=== PATIENT | female | born 1970 ===

== ENCOUNTER 2019-05-17 08:19 | Day surgery (SDC) | payer OTHER ==
--- NOTE | 2019-05-16 16:10 | Pre-Procedure Note/Attestation ---
Pre-Procedure Note/Attestation Complete Prior to Procedure Planned Procedure: right Procedure Narrative: rt carpal tunnel release, cubital tunnel release with ulnar n transposition and lateral epicondylar PRP Indications for Procedure Pre-Operative Diagnosis: rt carpal tunnel syndrome, cubital tunnel syndrome, lateral epicondylitis Attestation I attest that I discussed the nature of the procedure; its benefits; risks and complications; and alternatives (and the risks and benefits of such alternatives ), prior to the procedure, with the patient (or the patient's legal hospital insurance representative). I attest that, if there was a reasonable possibility of needing a blood transfusion, the patient (or the patient's legal hospital insurance representative) was given the [place] [employer] standardized written summary, pursuant to the Skyler Linnette Blood Safety Act ([place] Health and Safety Code # 1645, as amended). I attest that I re-evaluated the patient just prior to the surgery and that there has been no change in the patient's H&P, except as documented below: NONE Ar Boone MD May 16, 2019 16:10
[2019-05-17] VITALS (8 sets, daily range): BP systolic 103–132; BP diastolic 58–77
[~2019-05-17] VITALS: Ht 165.1 cm; Wt 61.2 kg
[~2019-05-17 08:19] MED LIST: ceFAZolin 1gm IVPB IVPB ONE; celeBREX 200mg Cap **SURGERY PATIENTS ONLY ORAL ONE; oxyCONTIN 20mg tab ORAL ONE
[2019-05-17] MEDS ORDERED: [UNRECOGNIZED DRUG - REMARK] PO (08:54)
[2019-05-17] MEDS ORDERED: NAPROXEN500 M2 ORAL (09:19)
[2019-05-17] MEDS ORDERED: celeBREX 200mg Cap **SURGERY PATIENTS ONLY ORAL ONE (09:33)
[2019-05-17] MEDS ORDERED: oxyCONTIN 20mg tab ORAL ONE (09:33)
[2019-05-17] MEDS ORDERED: D5 1/2NS 1,000 ML IV SCH (10:15)
[2019-05-17] MEDS ORDERED: HYDROmorphone 1mg/ml Carpuject SUBQ PRN (10:15)
[2019-05-17] MEDS ORDERED: HYDROcodone/Acetamin 5/325 tab ORAL PRN ×2 (10:15→10:30)
[2019-05-17] MEDS ORDERED: Tylenol #3 tab (300mg/30mg) ORAL PRN (10:15)
[2019-05-17] MEDS ORDERED: Bupivacaine w/Epi 0.5% 30ml Vial INJ ONE (10:25)
[2019-05-17] MEDS ORDERED: NeoSporin Gu Irrig 1ml Amp IRRIG ONE (10:25)
[2019-05-17] MEDS ORDERED: Bacitracin 50000 Units Vial ONE (10:25)
[2019-05-17] MEDS ORDERED: LR 1000ml 1,000 ML IVLG SCH (10:29)
[2019-05-17] MEDS ORDERED: Sterile Water Irrig 1000ml IRRIG ONE (10:30)
[2019-05-17] MEDS ORDERED: Propofol 200mg/20ml IV ONE (10:30)
[2019-05-17] MEDS ORDERED: oxyCODONE HCL/Acetaminophen 5/325mg ORAL PRN (10:30)
[2019-05-17] MEDS ORDERED: Metoclopramide 10mg/2ml Inj IVP PRN (10:30)
[2019-05-17] MEDS ORDERED: LORazepam Inj 2mg/ml 1ml IV PRN (10:30)
[2019-05-17] MEDS ORDERED: Meperidine 50mg/ml Inj(FOR RIGORS ONLY) IVP PRN (10:30)
[2019-05-17] MEDS ORDERED: DiphenhydrAMINE 50mg/ml Inj IVP PRN (10:30)
[2019-05-17] MEDS ORDERED: Atropine Sulfate 0.4mg/ml inj IVP PRN (10:30)
[2019-05-17] MEDS ORDERED: Acetaminophen (Non formulary) 100 ML IV ONE (10:30)
[2019-05-17] MEDS ORDERED: NS Irrig 1000ml ONE (10:30)
[2019-05-17] MEDS ORDERED: LR 1000ml ONE (10:30)
[2019-05-17] MEDS ORDERED: HYDROcodone/Acetamin 7.5/325 tab ORAL PRN (10:30)
[2019-05-17] MEDS ORDERED: Hydromorphone 0.5mg/0.5ml inj IVP PRN (10:30)
[2019-05-17] MEDS ORDERED: fentaNYL 100 mcg/2 mL IV PRN (10:30)
[2019-05-17] MEDS ORDERED: Labetalol 5mg/ml 20ml vial IV PRN (10:30)
[2019-05-17] MEDS ORDERED: Midazolam 2mg/2ml Inj IVP PRN (10:30)
[2019-05-17] MEDS ORDERED: Ketorolac 30mg Inj IV PRN ×2 (10:30)
--- NOTE | 2019-05-17 10:30 | Anethesia Preoperative Eval ---
Anesthesia Pre-op PMH/ROS General Date of Evaluation: May 17, 2019 Time of Evaluation: 10:34 Anesthesiologist: Dee ASA Score: ASA 1 Mallampati Score Class I : Soft palate, uvula, fauces, pillars visible Class II: Soft palate, uvula, fauces visible Class III: Soft palate, base of uvula visible Class IV: Only hard plate visible Mallampati Classification: Class I Surgeon: Mely Diagnosis: R Wrist Pain Surgical Procedure: R CTR with PRP injection wrist Anesthesia History: PONV Family History: no anesthesia problems Allergies: Coded Allergies: SUMATRIPTAN (Verified Adverse Reaction, Intermediate, severe headaches, ) Medications: see eMAR Patient NPO?: Yes Past Medical History Neurologic/Psychiatric: Reports: depression/anxiety, other - Migranes PSxH Narrative: Cholecystectomy, Breast Implants, C/S Anesthesia Pre-op Phys. Exam Physician Exam Last Vital Signs Date Time Temp Pulse Resp B/P (MAP) Pulse Ox O2 Delivery O2 Flow Rate FiO2 05/17/19 08:59 97.8 76 18 103/73 96 Room Air Constitutional: NAD Neurologic: CN 2-12 intact Cardiovascular: RRR Respiratory: CTA Gastrointestinal: S/NT/ND Airway Exam Mallampati Score: Class I MO: full ROM: full Teeth: intact Anesthesia Pre-op A/P Risk Assessment & Plan Assessment: ASA 1 Plan: TIVA Status Change Before Surgery: No Pre-Antibiotics Dru Gram Ancef IV Given Within 1 Hr of Incision: Yes Time Given: 10:41 Wallace Price MD May 17, 2019 10:30
[2019-05-17] MEDS ORDERED: Midazolam 2mg/2ml Inj ONE (10:35)
[2019-05-17] MEDS ORDERED: fentaNYL 100 mcg/2 mL IV ONE (10:35)
[2019-05-17] MEDS ORDERED: Dexamethasone 4mg/ml vial ONE (10:36)
[2019-05-17] MEDS ORDERED: Lidocaine 1% MPF 10mg/ml 5ml ONE ×2 (10:36→11:35)
[2019-05-17] MEDS ORDERED: Sodium Chloride 10ml vial INJ ONE (10:36)
[2019-05-17] MEDS ORDERED: Lidocaine 1% Plain 30 ml INJ ONE (10:36)
--- NOTE | 2019-05-17 11:31 | Immediate Post-Op Evaluation ---
Immediate Post-Op Evalulation Immediate Post-Op Evalulation Procedure: R CTR with PRP injection wrist Date of Evaluation: May 17, 2019 Time of Evaluation: 12:29 IV Fluids: 1100 LR Blood Products: 0 Estimated Blood Loss: 15 Urinary Output: 0 Blood Pressure Systolic: 111 Blood Pressure Diastolic: 59 Pulse Rate: 66 Respiratory Rate: 16 O2 Sat by Pulse Oximetry: 99 Temperature (Fahrenheit): 97.1 Pain Score (1-10): 2 Nausea: No Vomiting: No Patient Status: awake, reacts, patent, none Hydration Status: adequate Dru Given Within 1 Hr of Incision: Yes Time Given: 10:41 Wallace Price MD May 17, 2019 11:31
--- NOTE | 2019-05-17 11:32 | 48 Hour Post Anesthesia Eval ---
Post Anesthesia Evaluation Procedure: R CTR with PRP injection wrist Date of Evaluation: May 17, 2019 Time of Evaluation: 14:34 Blood Pressure Systolic: 128 0: 62 Pulse Rate: 67 Respiratory Rate: 18 Temperature (Fahrenheit): 98 O2 Sat by Pulse Oximetry: 100 Airway: patent Nausea: No Vomiting: No Pain Intensity: 2 Hydration Status: adequate Cardiopulmonary Status: Stable Mental Status/LOC: patient returned to baseline Follow-up Care/Observations: 0 Post-Anesthesia Complications: 0 Follow-up care needed: ready to discharge Wallace Price MD May 17, 2019 11:32
--- NOTE | 2019-05-17 12:04 | Brief Operative Note ---
Immediate Post Operative Note Operative Note Chief Complaint: rt elbow/wrist pain Pre-op Diagnosis: rt carpal tunnel syndrome, cubital tunnel syndrome, lateral epicondylitis Procedure: rt carpal tunnel release, cubital tunnel release with ulnar n transposition, lateral epicondylar prp Post-op Diagnosis: same as pre-op Findings: consistent w/pre-op dx studies Surgeon: md january Load Dispatcher Local: isaiah smith Anesthesiologist: md anne-marie Anesthesia: general Specimen: none Complications: none Condition: stable Fluids: ns Estimated Blood Loss: minimal Drains: none Implant(s) used?: No Rochelle Smith May 17, 2019 12:04
--- NOTE | 2019-05-17 18:00 | Operative Note - Dictated ---
DATE OF OPERATION: 05/17/2019 PREOPERATIVE DIAGNOSES: 1. Right hand carpal tunnel syndrome. 2. Right elbow medial epicondylitis. 3. Right elbow cubital tunnel syndrome. 4. Right elbow lateral epicondylitis. POSTOPERATIVE DIAGNOSES: 1. Right hand carpal tunnel syndrome. 2. Right elbow medial epicondylitis. 3. Right elbow cubital tunnel syndrome. 4. Right elbow lateral epicondylitis. PROCEDURE: 1. Right hand carpal tunnel release. 2. Right elbow medial epicondylar release. 3. Right elbow subfascial ulnar nerve transposition. 4. Injection of platelet rich plasma (PRP) into the right lateral epicondylar area at the origin of the ECRB. SURGEON: Ar Boone M.D. DRAPERY INSPECTOR: Rochelle Garcia PA-C. ANESTHESIOLOGIST: Wallace Price M.D. ANESTHESIA: General LMA anesthesia. ESTIMATED BLOOD LOSS: Less than 20 mL. TOURNIQUET TIME: 45 minutes. COMPLICATIONS: None. BRIEF HISTORY: The patient is a pleasant 48-year-old female who has had ongoing issues with her tubal tunnel, carpal tunnel, and lateral epicondylitis of the right elbow. She failed nonoperative treatment and after full discussion of risks and benefits of the surgery and complications associated with it including infection, bleeding, neurovascular complication, possibility of continued pain, possibility of continued numbness and tingling, possibility of damage to ulnar nerve or median nerve, possibility of continued lateral epicondylar symptoms, possibility of need for further surgery down the line and other complications that may arise, she opted for surgical treatment as described above. OPERATIVE PROCEDURE: The patient was brought to the operating table and was placed supine. All pressure points were well padded. General LMA anesthesia was induced. The right arm was prepped and draped in usual sterile fashion. The right arm was exsanguinated. Tourniquet was inflated to 275 mmHg. Standard incision was made through the carpal tunnel distal to the wrist crease in line with the radial border of the ring finger. The incision was extended by about 2.5 cm. Subcutaneous dissection was performed and a fascia was opened. Transverse carpal ligament was identified and this was divided distally all the way to the fatty area surrounding the palmar arch. Proximally, this was dissected under direct visualization up to the distal wrist crease and subsequently subcutaneous dissection was performed over and under the transverse carpal ligament and the transverse carpal ligament was then released completely proximally up to the proximal wrist crease. This provided excellent release of carpal tunnel. The nerve was visualized and was slightly narrowed and hyperemic in the area of the carpal tunnel. The wounds were thoroughly irrigated and the skin was closed using 4-0 interrupted horizontal mattress nylon sutures. Care at this point was given to the medial epicondylar area. An incision was made over the medial aspect of the elbow centering over the medial epicondyle. The incision was taken 2 cm distal and 5 cm proximal to the medial epicondyle. The incision was taken through the subcutaneous tissue. The transverse ligament over the cubital tunnel was identified and cubital tunnel release was performed and ulnar nerve was identified. The ulnar nerve was then dissected proximally and distally and was mobilized. The proximal extension was about 5 cm proximal to the elbow medial epicondyle and distally was dissected into the flexor carpi ulnaris. The motor branches were maintained and preserved. Once the nerve was exposed and mobilized, a fascial sling was created from the common flexor tendon. The Z-lengthening of the fascia was performed. The sling was created and the ulnar nerve was then transposed anteriorly over the medial epicondyle and using the fascial sling, subfascial transposition was performed. The fascial sling was closed using 3-0 Vicryl suture. The nerve was mobile underneath the sling and there was no tension. The medial epicondylar attachment of the flexor tendon was then released and debrided. At this point, all wounds were thoroughly irrigated using copious amount of fluid. The tourniquet was deflated. All bleeders were stopped. The subcutaneous tissue was closed using 2-0 Vicryl suture and skin was closed using 3-0 Monocryl suture. Steri-Strips were applied and sterile dressing was applied. At the beginning of the procedure, 30 mL of whole blood was taken from the right antecubital fossa. The blood was then transferred to the Playrollet system for PRP and was spun at 200 rpm for 15 minutes. The capsular layer was then aspirated through sterile technique and at the conclusion of the surgery, once a sterile dressing was applied to the medial epicondyle as well as carpal tunnel, the lateral epicondyle was prepped and draped in usual sterile fashion and the PRP was injected in the origin of the ECRB over the lateral epicondyle. Sterile dressing was applied to the lateral condyle at this point. All wounds were thoroughly irrigated using copious amount of fluid prior to closure. The patient tolerated the procedure well without any complication, was taken to recovery room in stable condition. Ar Boone M.D. DR: GILMAR JOB#: [id number] CC:
== END 2019-05-17 14:30 | disposition home or self-care (01) ==
LOC: SUR 08:19
DX: G56.01 Carpal tunnel syndrome, right upper limb (principal); G56.21 Lesion of ulnar nerve, right upper limb; M77.01 Medial epicondylitis, right elbow; M77.11 Lateral epicondylitis, right elbow; Z90.89 Acquired absence of other organs; Z90.49 Acquired absence of other specified parts of digestive tract; F41.9 Anxiety disorder, unspecified
CPT/HCPCS: 0232T; 24357; 64721; J0690; J1100; J2001; J2250; J2405; J2704; J3010; J7120; 94003; 94150